=== PATIENT | male | born 1980 | race Caucasian/White ===

== ENCOUNTER 2016-09-24 21:41 | Inpatient (IN) | payer BC, OTHER ==
--- NOTE | 2016-09-24 22:46 | PDOC ---
History of Present Illness - General Chief Complaint: Rash Stated Complaint: RASH,KNEE PAIN Time Seen by Provider: 09/24/16 22:14 History Source: Patient - History of Present Illness Initial Comments: 09/24/16 23:13 35 year old male with right forearm rash started on 09/18/2016 seen in urgent care started on acyclovir for possible shingles. rash progressively worsened patient seen in urgent care yesterday given steroids and clindamycin. returned today for a wound check, rash spreading with worsening redness, and warmth. no streaking noted up the arm. patient reports yard work unsure of poison nestor exposure. Past History - Past Medical History Allergies/Adverse Reactions: Allergies Allergy/AdvReac Type Severity Reaction Status Date / Time No Known Allergies Allergy Verified 09/19/14 06:23 Home Medications: Ambulatory Orders Prazosin HCl [Minipress -] 2 mg PO PRN 09/25/16 Buspirone HCl [Buspar -] 5 mg PO TID tablet 09/29/16 Anemia: No Asthma: No Cancer: No Cardiac Disorders: No CVA: No COPD: No CHF: No Dementia: No Diabetes: No GI Disorders: No Disorders: No HTN: No Hypercholesterolemia: Yes Liver Disease: No Seizures: No Thyroid Disease: No - Surgical History Abdominal Surgery: No Appendectomy: No Cardiac Surgery: No Cholecystectomy: No Lung Surgery: No Neurologic Surgery: No Orthopedic Surgery: Yes (ACL LEFT KNEE) - Immunization History Immunization Up to Date: Yes - Psycho/Social/Smoking Cessation Hx Anxiety: No Suicidal Ideation: No Smoking Status: No Smoking History: Never smoked Have you smoked in the past 12 months: No Number of Cigarettes Smoked Daily: 0 Cigars Per Day: 0 Information on smoking cessation initiated: No Hx Alcohol Use: No Drug/Substance Use Hx: No Substance Use Type: Alcohol Hx Substance Use Treatment: No Review of Systems - Review of Systems Able to Perform ROS?: Yes Is the patient limited Turkish proficient: No Constitutional: No: Symptoms Reported, See HPI, Chills, Diaphoresis, Fever, Loss of Appetite, Malaise, Night Sweats, Weakness, Weight Stable, Unintentional Wgt. Loss, Unexplained wgt Loss, Other Cardiac (ROS): No: Symptoms Reported, See HPI, Chest Pain, Edema, Irregular Heart Rate, Lightheadedness, Palpitations, Syncope, Chest Tightness, Other ABD/GI: No: Symptoms Reported, See HPI, Abdominal Distended, Abd. Pain w/ defecation, Blood Streaked Bowels, Constipated, Diarrhea, Difficulty Swallowing , Nausea, Poor Appetite, Poor Fluid Intake, Rectal Bleeding, Vomiting, Indigestion, Abdominal cramping, Tarry Stools, Other Integumentary: Yes: Erythema (and rash to right forearm) *Physical Exam - Vital Signs Last Vital Signs Temp Pulse Resp BP Pulse Ox 98.4 F 87 17 143/91 96 09/24/16 21:47 09/24/16 21:47 09/24/16 21:47 09/24/16 21:47 09/24/16 21:47 - Physical Exam General Appearance: Yes: Appropriately Dressed Respiratory/Chest: positive: Lungs Clear, Normal Breath Sounds Extremity: positive: Normal Capillary Refill, Normal Inspection, Normal Range of Motion, Other (bullous weeping erythematous area extensive to forearm and upper arm. no lymphadenopathy noted.) Integumentary: positive: Normal Color, Dry, Warm Neurologic: positive: Fully Oriented, Alert, Normal Mood/Affect ED Treatment Course - LABORATORY CBC & Chemistry Diagram: 09/28/16 08:30 09/27/16 13:10 Progress Note - Progress Note Progress Note: A: rash with superimposed cellulitis P: CBC Blood culture antibiotics admit for cellulitis Medical Decision Making - Medical Decision Making 09/25/16 01:53 patient to be monitored for further management of care. patient admitted to Dr. santacruz *DC/Admit/Observation/Transfer Diagnosis at time of Disposition: Cellulitis Qualifiers: Site of cellulitis: extremity Site of cellulitis of extremity: upper extremity Laterality: right Qualified Code(s): L03.113 - Cellulitis of right upper limb - Discharge Dispostion Disposition: HOME Condition at time of disposition: Improved Admit: Yes
[2016-09-24 23:19] LABS: BASOPHIL 0.6 % (0-2.0); EOSINOPHIL 5.7 % (0-4.5); MCHC 33.9 g/dl (32.0-35.9); MEAN CELL VOLUME 94.5 fl (80-96); MEAN PLT VOLUME 9.7 fl (7.5-11.1); NEUTROPHILS 60.2 % (42.8-82.8); PLATELET COUNT 198 K/MM3 (134-434); WHITE BLOOD COUNT 9.1 K/mm3 (4.0-10.0)
[2016-09-24 23:31] LABS: INR 1.12 (0.82-1.09); PROTHROMBIN TIME (PATIENT) 12.3 SEC (9.98-11.88)
[2016-09-24 23:33] LABS: ACTIVATED PTT 33.9 SECONDS (26.9-34.4)
[2016-09-24 23:43] LABS: URINE APPEARANCE CLEAR; URINE BILIRUBIN NEGATIVE (NEGATIVE); URINE BLOOD NEGATIVE (NEGATIVE); URINE COLOR YELLOW; URINE GLUCOSE (UA) NEGATIVE (NEGATIVE); URINE KETONE NEGATIVE (NEGATIVE); URINE LEUK ESTERASE NEGATIVE (NEGATIVE); URINE NITRITE NEGATIVE (NEGATIVE); URINE PROTEIN NEGATIVE (NEGATIVE); URINE UROBILINOGEN NEGATIVE E.U./dl (0.2-1.0)
[2016-09-24 23:45] LABS: ALBUMIN 4.1 g/dl (3.4-5.0); CALCIUM 9.5 mg/dL (8.5-10.1); COCKROFT - GAULT 101.9; CREATININE 1.4 mg/dL (0.7-1.3)
[2016-09-24 23:47] LABS: BILIRUBIN,TOTAL 0.6 mg/dL (0.2-1.0); TOT PROT 7.6 g/dl (6.4-8.2)
--- NOTE | 2016-09-25 00:26 | PDOC ---
*Physical Exam - Vital Signs Last Vital Signs Temp Pulse Resp BP Pulse Ox 98.4 F 87 17 143/91 96 09/24/16 21:47 09/24/16 21:47 09/24/16 21:47 09/24/16 21:47 09/24/16 21:47 - Physical Exam Comments: 09/25/16 00:26 The patient was examined by [EKATERINA Wheatley] under my direct supervision. I personally evaluated the patient. I concur with the above findings and the plan of care. ED Treatment Course - LABORATORY CBC & Chemistry Diagram: 09/24/16 23:02 09/24/16 23:02 - ADDITIONAL ORDERS Additional order review: Laboratory Results 09/24/16 23:02 Sodium 142 Potassium 4.4 Chloride 103 Carbon Dioxide 29 Anion Gap 10 BUN 21 H D Creatinine 1.4 H D Creat Clearance w eGFR 57.03 Random Glucose 104 Calcium 9.5 Total Bilirubin 0.6 AST 19 D ALT 40 D Alkaline Phosphatase 57 Total Protein 7.6 Albumin 4.1 09/24/16 23:02 RBC 4.77 MCV 94.5 MCHC 33.9 RDW 13.0 MPV 9.7 Neutrophils % 60.2 Lymphocytes % 25.9 D Monocytes % 7.6 Eosinophils % 5.7 H D Basophils % 0.6 *DC/Admit/Observation/Transfer Diagnosis at time of Disposition: Cellulitis Qualifiers: Site of cellulitis: extremity Site of cellulitis of extremity: upper extremity Laterality: right Qualified Code(s): L03.113 - Cellulitis of right upper limb
[2016-09-25] MEDS ORDERED: VANCOMYCIN 1 GRAM (PRE-DOCKED) 1,000 MG/250 ML BAG IVPB ONE (00:46)
[2016-09-25] MEDS ORDERED: CEFAZOLIN 1 GM in DEXTROSE 5%-WATER - 50 ML IVPB ONE (00:46)
[2016-09-25] MEDS ORDERED: CEFAZOLIN (PRE-DOCKED) 50 ML IVPB ONE (00:50)
[2016-09-25] MEDS ORDERED: SODIUM CHLORIDE 0.9% 500 ML INFUS.BAG IV ONE (01:15)
[2016-09-25] MEDS ORDERED: VANCOMYCIN 1 GRAM (PRE-DOCKED) 250 ML IVPB ONE (01:40)
[2016-09-25 04:38] VITALS: BMI 34.9
[2016-09-25] MEDS ORDERED: ACETAMINOPHEN 325 MG TABLET (FP) PO PRN (09:10)
[2016-09-25] MEDS ORDERED: PRAZOSIN HCL 2 MG CAPSULE PO SCH (09:15)
--- NOTE | 2016-09-25 10:25 | HP ---
Admitting History and Physical - Primary Care Physician PCP: Carolina Torres - Admission Chief Complaint: Worsening Rash Rt Elbow arm History of Present Illness: 35 year old male H/O PTSD, depression and anxiety present with Rt forearm rash started on 09/18/2016 as a blister around elbow, , initially seen in an urgent care , considering Herpez Zoster patient was started on acyclovir, rash progressively worsened patient revisited urgent , put on steroids and clindamycin. Wound remained symptomatic so returned today for a wound check, rash spreading with worsening erythema and warmth. no streaking noted up the arm. Patient denies any insect bite, trauma, pin prick or sick contact no c/o fever, chills , nausea or vomiting. History Source: Patient Limitations to Obtaining History: No Limitations - Past Medical History Cardiovascular: No: AFIB, HTN, Hyperlipdemia Pulmonary: No: Asthma, Bronchitis Gastrointestinal: No: Ascites, Constipation Infectious Disease: Yes: AIDS - Smoking History Smoking history: Never smoked Have you smoked in the past 12 months: No Aproximately how many cigarettes per day: 0 - Alcohol/Substance Use Hx Alcohol Use: Yes (occasional) - Social History History of Recent Travel: No Home Medications - Allergies Allergies/Adverse Reactions: Allergies Allergy/AdvReac Type Severity Reaction Status Date / Time No Known Allergies Allergy Verified 09/19/14 06:23 - Home Medications Home Medications: Ambulatory Orders Buspirone HCl [Buspar -] 5 mg PO TID 09/25/16 Prazosin HCl [Minipress -] 2 mg PO PRN 09/25/16 Family Disease History - Family Disease History Family Disease History: Heart Disease: Father (HTN) Review of Systems - Review of Systems Constitutional: reports: No Symptoms, Malaise Eyes: reports: No Symptoms HENT: reports: No Symptoms Neck: reports: No Symptoms Cardiovascular: reports: No Symptoms Respiratory: reports: No Symptoms Gastrointestinal: reports: No Symptoms Genitourinary: reports: No Symptoms Breasts: reports: No Symptoms Reported Musculoskeletal: reports: No Symptoms Integumentary: reports: Blister Neurological: reports: No Symptoms Endocrine: reports: No Symptoms Hematology/Lymphatic: reports: No Symptoms Psychiatric: reports: No Symptoms. denies: Panic, Paranoia, Suicidal Physical Examination Vital Signs: Vital Signs Temperature 97.8 F 09/25/16 06:00 Pulse Rate 72 09/25/16 06:00 Respiratory Rate 12 09/25/16 06:00 Blood Pressure 127/77 09/25/16 06:00 O2 Sat by Pulse Oximetry (%) 97 09/25/16 00:30 Young man not in Distress HEENT: MM moist, no anemia, PERRLA EOMI NECK; No JVD No Bruit CHEST: CTA B/L CVS; S1S2 R no m/g/r ABD: No distention, non tender Bs + EXT: Rt UE around elbow medial aspect multiple bliters formation with erythem aof surrounding ski, also few small vesicular rash on left hand dorm and fore head No edema feet no calf tenderness [employer]: Aox3 non focal Derm:Rt UE around elbow medial aspect multiple bliters formation with erythem aof surrounding ski, also few smlal rash on left hand dorm and fore head Labs: Laboratory Results - last 24 hr 09/24/16 09/24/16 09/24/16 23:02 23:02 23:02 WBC 9.1 D RBC 4.77 Hgb 15.3 Hct 45.0 MCV 94.5 MCHC 33.9 RDW 13.0 Plt Count 198 MPV 9.7 Neutrophils % 60.2 Lymphocytes % 25.9 D Monocytes % 7.6 Eosinophils % 5.7 H D Basophils % 0.6 INR 1.12 PTT (Actin FS) 33.9 Sodium 142 Potassium 4.4 Chloride 103 Carbon Dioxide 29 Anion Gap 10 BUN 21 H D Creatinine 1.4 H D Creat Clearance w eGFR 57.03 Random Glucose 104 Calcium 9.5 Total Bilirubin 0.6 AST 19 D ALT 40 D Alkaline Phosphatase 57 Total Protein 7.6 Albumin 4.1 Urine Color Urine Appearance Urine pH Ur Specific [place] Urine Protein Urine Glucose (UA) Urine Ketones Urine Blood Urine Nitrite Urine Bilirubin Urine Urobilinogen Ur Leukocyte Esterase Blood Type Antibody Screen 09/24/16 09/24/16 09/25/16 23:02 23:30 08:40 WBC RBC Hgb Hct MCV MCHC RDW Plt Count MPV Neutrophils % Lymphocytes % Monocytes % Eosinophils % Basophils % INR PTT (Actin FS) Sodium Potassium Chloride Carbon Dioxide Anion Gap BUN Creatinine Creat Clearance w eGFR Random Glucose Calcium Total Bilirubin AST ALT Alkaline Phosphatase Total Protein Albumin Urine Color Yellow Urine Appearance Clear Urine pH 6.0 Ur Specific [place] 1.028 Urine Protein Negative Urine Glucose (UA) Negative Urine Ketones Negative Urine Blood Negative Urine Nitrite Negative Urine Bilirubin Negative Urine Urobilinogen Negative Ur Leukocyte Esterase Negative Blood Type A POSITIVE A POSITIVE Antibody Screen Negative Assessment/Plan Active Medications Generic Name Dose Route Start Last Admin Trade Name Freq PRN Reason Stop Dose Admin Acetaminophen 650 mg 09/25/16 09:10 Tylenol - PO Q6H PRN FEVER OR PAIN Buspirone HCl 5 mg 09/25/16 14:00 Buspar - PO TID BRIT Sodium Chloride 1,000 mls @ 100 mls/hr 09/25/16 09:15 Normal Saline - IV ASDIR BRIT Cefazolin Sodium 50 mls @ 100 mls/hr 09/25/16 10:00 Ancef 1gm Ivpb (Pre-Docked) IVPB Q8H-IV BRIT Prazosin HCl 2 mg 09/25/16 09:15 Minipress - PO PRN BRIT 1. 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 2. AMELIA: Due to dehydration F/U BMP after Hydration 3 Dehydration: IV hydration. 4: PTSD depression cont home meds 5. HTN: Cont Home meds
[2016-09-25] MEDS: CEFAZOLIN (PRE-DOCKED) 50 ML IVPB SCH ×2 (10:47→18:15)
[2016-09-25] MEDS: SODIUM CHLORIDE 1,000 ML IV SCH ×2 (10:48→23:32)
[2016-09-25] MEDS: diphenhydrAMINE HCL 25 MG CAPSULE (FP) PO PRN ×2 (14:03→20:49)
[2016-09-25] MEDS: busPIRone HCL 5 MG TABLET PO SCH ×2 (14:04→21:12)
--- NOTE | 2016-09-25 14:40 | CONSULT ---
Consult Consult Specialty:: infectious diseases Referred by:: Reason for Consultation:: blisters on forearm - History of Present Illness Chief Complaint: blisters History of Present Illness: 35 year old male H/O depression and anxiety present with Rt forearm rash started on 09/18/2016 , initially seen in an urgent care , considering Herpez Zoster patient was started on acyclovir, rash progressively worsened patient revisited urgent , put on steroids and clindamycin. patient now comes wiht worsening rah,blisters and pain some of the blisters are fluid filled also patient has - History Source History Provided By: Patient Limitations to Obtaining History: No Limitations - Past Medical History Cardio/Vascular: No: AFIB, HTN, Hyperlipdemia Pulmonary: No: Asthma, Bronchitis Gastrointestinal: No: Ascites, Constipation Infectious Disease: Yes: AIDS - Alcohol/Substance Use Hx Alcohol Use: Yes (occasional) - Smoking History Smoking history: Never smoked Have you smoked in the past 12 months: No Aproximately how many cigarettes per day: 0 - Social History History of Recent Travel: No Home Medications - Allergies Allergies/Adverse Reactions: Allergies Allergy/AdvReac Type Severity Reaction Status Date / Time No Known Allergies Allergy Verified 09/19/14 06:23 - Home Medications Home Medications: Ambulatory Orders Buspirone HCl [Buspar -] 5 mg PO TID 09/25/16 Prazosin HCl [Minipress -] 2 mg PO PRN 09/25/16 Review of Systems - Review of Systems Constitutional: reports: No Symptoms Eyes: reports: No Symptoms HENT: reports: No Symptoms Neck: reports: No Symptoms Cardiovascular: reports: No Symptoms Respiratory: reports: No Symptoms Gastrointestinal: reports: No Symptoms Musculoskeletal: reports: No Symptoms Integumentary: reports: Bruising, Erythema, Rash, Wound, Other Neurological: reports: No Symptoms Endocrine: reports: No Symptoms Hematology/Lymphatic: reports: No Symptoms Psychiatric: reports: No Symptoms Physical Exam Vital Signs: Vital Signs Temperature 97.7 F 09/25/16 13:55 Pulse Rate 77 09/25/16 13:55 Respiratory Rate 09/25/16 13:55 Blood Pressure 127/77 09/25/16 06:00 O2 Sat by Pulse Oximetry (%) 97 09/25/16 00:30 Constitutional: Yes: Calm, Mild Distress Eyes: Yes: Conjunctiva Clear HENT: Yes: Atraumatic Neck: Yes: Supple, Trachea Midline Cardiovascular: Yes: Regular Rate and Rhythm Respiratory: Yes: Regular, CTA Bilaterally Gastrointestinal: Yes: Normal Bowel Sounds, Soft Musculoskeletal: Yes: Other Extremities: Yes: Erythema, Other (rash,herpetic lesions type) Integumentary: Yes: Erythema, Rash, Other (blisters) Wound/Incision: Yes: Other Neurological: Yes: Alert, Oriented Psychiatric: Yes: Alert, Oriented Assessment/Plan after examining the patient i have no doubt that this is an infection,i also think the way rash is and he developing other vesicles he could very well have herpes r/o herpes. r/o mrsa infection wound infection rt arm cellulitis blisters chary plan will start him on unasyn and clinda also i am giving acylovir will ask for viral culture to see if he has herpes rest continue hydration continue to monitor
[2016-09-25] MEDS ORDERED: PT OWN MED DRAWER 7, Y5N ONE (16:48)
[2016-09-25] MEDS: CLINDAMYCIN 600MG PREMIX IVPB 50 ML IVPB SCH (16:57)
[2016-09-25] MEDS: ACYCLOVIR INJECTION 500 MG in DEXTROSE 5%-WATER - 100 ML IVPB SCH (16:57)
[2016-09-25] MEDS: AMPICILLIN NA/SULBACTAM NA 3 GM in SODIUM CHLORIDE 100 ML IVPB SCH (16:57)
[2016-09-26] MEDS: CLINDAMYCIN 600MG PREMIX IVPB 50 ML IVPB SCH ×4 (01:26→21:01)
[2016-09-26] MEDS: AMPICILLIN NA/SULBACTAM NA 3 GM in SODIUM CHLORIDE 100 ML IVPB SCH ×3 (02:13→17:53)
[2016-09-26] MEDS: ACYCLOVIR INJECTION 500 MG in DEXTROSE 5%-WATER - 100 ML IVPB SCH ×2 (02:50→09:26)
[2016-09-26] MEDS: busPIRone HCL 5 MG TABLET PO SCH ×3 (05:50→21:41)
[2016-09-26 08:28] LABS: BASOPHIL 0.8 % (0-2.0); EOSINOPHIL 6.3 % (0-4.5); MCH 32.3 pg (25.7-33.7); MCHC 34.2 g/dl (32.0-35.9); MEAN CELL VOLUME 94.4 fl (80-96); NEUTROPHILS 51.7 % (42.8-82.8); PLATELET COUNT 168 K/MM3 (134-434); RDW 13.3 % (11.9-15.9); WHITE BLOOD COUNT 5.3 K/mm3 (4.0-10.0)
[2016-09-26] MEDS: diphenhydrAMINE HCL 25 MG CAPSULE (FP) PO PRN ×3 (08:52→21:45)
[2016-09-26] MEDS: amLODIPine BESYLATE 5 MG TABLET (FP) PO SCH ×2 (08:53→11:15)
[2016-09-26 09:07] LABS: ALBUMIN 3.3 g/dl (3.4-5.0); ALK PHOS 51 U/L (45-117); ANION GAP 9 (8-16); BILIRUBIN,TOTAL 0.7 mg/dL (0.2-1.0); CALCIUM 8.7 mg/dL (8.5-10.1); CO2 26 mmol/L (21-32); COCKROFT - GAULT 135.67; CREATININE 1.1 mg/dL (0.7-1.3); GLUCOSE,RANDOM 82 mg/dL (74-106); SGOT/AST 17 U/L (15-37); SGPT/ALT 32 U/L (12-78); TOT PROT 6.6 g/dl (6.4-8.2)
[2016-09-26] MEDS ORDERED: PT OWN MED DRAWER 7, Y5N ONE ×4 (11:38→21:04)
[2016-09-26] MEDS ORDERED: diphenhydrAMINE HCL 25 MG CAPSULE (FP) PO PRN (13:17)
[2016-09-26] MEDS: SODIUM CHLORIDE 1,000 ML IV SCH (14:41)
--- NOTE | 2016-09-26 14:48 | PN ---
Progress Note, Physician History of Present Illness: hands still with blister now the other hand also developing on the hand itchy - Current Medication List Current Medications: Active Medications Acetaminophen (Tylenol -) 650 mg PO Q6H PRN PRN Reason: FEVER OR PAIN Amlodipine Besylate (Norvasc -) 5 mg PO DAILY [facility] Last Admin: 09/26/16 11:15 Dose: 5 mg Buspirone HCl (Buspar -) 5 mg PO TID [facility] Last Admin: 09/26/16 14:40 Dose: 5 mg Diphenhydramine HCl (Benadryl -) 50 mg PO Q6H PRN PRN Reason: ITCHINESS Last Admin: 09/26/16 14:40 Dose: 50 mg Sodium Chloride (Normal Saline -) 1,000 mls @ 100 mls/hr IV ASDIR [facility] Last Admin: 09/26/16 14:41 Dose: 100 mls/hr Clindamycin Phosphate (Cleocin 600 Mg Premix Ivpb -) 50 mls @ 100 mls/hr IVPB Q8H-IV [facility] Last Admin: 09/26/16 11:07 Dose: 100 mls/hr Acyclovir 500 mg/ Dextrose 110 mls @ 100 mls/hr IVPB Q8H-IV [facility] Last Admin: 09/26/16 09:26 Dose: 100 mls/hr Ampicillin Sodium/Sulbactam (Sodium 3 gm/ Sodium Chloride) 100 mls @ 200 mls/ hr IVPB Q8H-IV BRIT Last Admin: 09/26/16 11:55 Dose: 200 mls/hr - Objective Vital Signs: Vital Signs Temperature 97.6 F 09/26/16 13:40 Pulse Rate 92 H 09/26/16 13:40 Respiratory Rate 20 09/26/16 09:00 Blood Pressure 121/84 09/26/16 13:40 O2 Sat by Pulse Oximetry (%) 95 09/25/16 09:00 Constitutional: Yes: Calm, Mild Distress Eyes: Yes: Conjunctiva Clear Cardiovascular: Yes: Regular Rate and Rhythm Respiratory: Yes: Regular, CTA Bilaterally Gastrointestinal: Yes: Normal Bowel Sounds, Soft Musculoskeletal: Yes: WNL Extremities: Yes: WNL Neurological: Yes: Alert, Oriented Psychiatric: Yes: Alert, Oriented Labs: CBC, BMP 09/26/16 08:15 09/26/16 08:15 INR, PTT INR 1.12 (0.82-1.09) 09/24/16 23:02 Assessment/Plan after examining the patient i have no doubt that this is an infection,i also think the way rash is and he developing other vesicles he could very well have herpes r/o herpes. r/o mrsa infection wound infection rt arm cellulitis blisters chary posradha baez i think after seeing todays pictures it is less likely to be herpes plan will start him on unasyn and clinda will stop acylovir await for cx rest continue hydration continue to monitor
--- NOTE | 2016-09-26 18:16 | PN ---
Progress Note, Physician Chief Complaint: Less itching and erythema no new blisters remained afebtrile History of Present Illness: 35 yrs old man H/o HTN, PTSD admitted with Rt UE blisters with rash - Current Medication List Current Medications: Active Medications Acetaminophen (Tylenol -) 650 mg PO Q6H PRN PRN Reason: FEVER OR PAIN Amlodipine Besylate (Norvasc -) 5 mg PO DAILY [facility] Last Admin: 09/26/16 11:15 Dose: 5 mg Buspirone HCl (Buspar -) 5 mg PO TID [facility] Last Admin: 09/26/16 14:40 Dose: 5 mg Diphenhydramine HCl (Benadryl -) 50 mg PO Q6H PRN PRN Reason: ITCHINESS Last Admin: 09/26/16 14:40 Dose: 50 mg Hydrocortisone (Hytone 1% Lotion -) 1 applic TP BID PRN PRN Reason: DRY SKIN Sodium Chloride (Normal Saline -) 1,000 mls @ 100 mls/hr IV ASDIR [facility] Last Admin: 09/26/16 14:41 Dose: 100 mls/hr Clindamycin Phosphate (Cleocin 600 Mg Premix Ivpb -) 50 mls @ 100 mls/hr IVPB Q8H-IV [facility] Last Admin: 09/26/16 16:52 Dose: 100 mls/hr Ampicillin Sodium/Sulbactam (Sodium 3 gm/ Sodium Chloride) 100 mls @ 200 mls/ hr IVPB Q8H-IV [facility] Last Admin: 09/26/16 17:53 Dose: 200 mls/hr - Objective Vital Signs: Vital Signs Temperature 97.6 F 09/26/16 13:40 Pulse Rate 92 H 09/26/16 13:40 Respiratory Rate 20 09/26/16 09:00 Blood Pressure 121/84 09/26/16 13:40 O2 Sat by Pulse Oximetry (%) 95 09/25/16 09:00 Constitutional: Yes: Well Nourished Eyes: Yes: WNL, Conjunctiva Clear HENT: Yes: WNL, Atraumatic, Normocephalic Neck: Yes: WNL, Supple, Trachea Midline Cardiovascular: Yes: WNL Respiratory: Yes: WNL, Regular, CTA Bilaterally Gastrointestinal: Yes: WNL, Normal Bowel Sounds, Soft ...Rectal Exam: Yes: Deferred Genitourinary: Yes: WNL Musculoskeletal: Yes: WNL. No: Back Pain, Joint Stiffness Extremities: Yes: Other (Rt UE around elbow medial aspect multiple bliters formation with erythem aof surrounding ski, also few smlal rash on left hand dorm and fore head) Edema: No Peripheral Pulses WNL: Yes Peripheral Pulses: Left Radial: 2+, Right Radial: 2+, Left Doralis Pedis: 2+, Right Dorsalis Pedis: 2+, Left Femoral: 2+, Right Femoral: 2+ Integumentary: Yes: Other (Rt UE around elbow medial aspect multiple bliters formation with erythem aof surrounding ski, also few smlal rash on left hand dorm and fore head) Labs: CBC, BMP 09/26/16 08:15 09/26/16 08:15 INR, PTT INR 1.12 (0.82-1.09) 09/24/16 23:02 Assessment/Plan Active Medications Generic Name Dose Route Start Last Admin Trade Name Freq PRN Reason Stop Dose Admin Acetaminophen 650 mg 09/25/16 09:10 Tylenol - PO Q6H PRN FEVER OR PAIN Buspirone HCl 5 mg 09/25/16 14:00 Buspar - PO TID BRIT Sodium Chloride 1,000 mls @ 100 mls/hr 09/25/16 09:15 Normal Saline - IV ASDIR BRIT Cefazolin Sodium 50 mls @ 100 mls/hr 09/25/16 10:00 Ancef 1gm Ivpb (Pre-Docked) IVPB Q8H-IV BRIT Prazosin HCl 2 mg 09/25/16 09:15 Minipress - PO PRN BRIT 1. 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 2. AMELIA: Due to dehydration F/U BMP after Hydration 3 Dehydration: IV hydration. 4: PTSD depression cont home meds
[2016-09-27] MEDS: CLINDAMYCIN 600MG PREMIX IVPB 50 ML IVPB SCH ×3 (01:55→17:20)
[2016-09-27] MEDS: AMPICILLIN NA/SULBACTAM NA 3 GM in SODIUM CHLORIDE 100 ML IVPB SCH ×3 (01:55→18:38)
[2016-09-27] MEDS: SODIUM CHLORIDE 1,000 ML IV SCH ×3 (01:56→17:19)
[2016-09-27] MEDS: busPIRone HCL 5 MG TABLET PO SCH ×3 (06:18→22:02)
[2016-09-27] MEDS ORDERED: PT OWN MED DRAWER 7, Y5N ONE ×3 (09:38→21:19)
[2016-09-27] MEDS: amLODIPine BESYLATE 5 MG TABLET (FP) PO SCH (09:46)
[2016-09-27] MEDS: diphenhydrAMINE HCL 25 MG CAPSULE (FP) PO PRN ×2 (11:44→22:33)
--- NOTE | 2016-09-27 12:43 | PN ---
[id number] Present Illness: 35 yrs old man H/o HTN, PTSD admitted with Rt UE blisters with rash - Current Medication List Current Medications: Active Medications Acetaminophen (Tylenol -) 650 mg PO Q6H PRN PRN Reason: FEVER OR PAIN Amlodipine Besylate (Norvasc -) 5 mg PO DAILY [facility] Last Admin: 09/27/16 09:46 Dose: 5 mg Buspirone HCl (Buspar -) 5 mg PO TID [facility] Last Admin: 09/27/16 06:18 Dose: 5 mg Diphenhydramine HCl (Benadryl -) 50 mg PO Q6H PRN PRN Reason: ITCHINESS Last Admin: 09/27/16 11:44 Dose: 50 mg Hydrocortisone (Hytone 1% Lotion -) 1 applic TP BID PRN PRN Reason: DRY SKIN Sodium Chloride (Normal Saline -) 1,000 mls @ 100 mls/hr IV ASDIR [facility] Last Admin: 09/27/16 09:32 Dose: Not Given Clindamycin Phosphate (Cleocin 600 Mg Premix Ivpb -) 50 mls @ 100 mls/hr IVPB Q8H-IV [facility] Last Admin: 09/27/16 09:46 Dose: 100 mls/hr Ampicillin Sodium/Sulbactam (Sodium 3 gm/ Sodium Chloride) 100 mls @ 200 mls/ hr IVPB Q8H-IV [facility] Last Admin: 09/27/16 11:39 Dose: 200 mls/hr - Objective Vital Signs: Vital Signs Temperature 97.8 F 09/27/16 05:44 Pulse Rate 74 09/27/16 05:44 Respiratory Rate 20 09/27/16 05:44 Blood Pressure 136/88 09/27/16 05:44 O2 Sat by Pulse Oximetry (%) 100 09/26/16 21:00 Constitutional: Yes: Well Nourished, No Distress Eyes: Yes: WNL, Conjunctiva Clear HENT: Yes: WNL, Normocephalic Neck: Yes: WNL, Supple, Trachea Midline Cardiovascular: Yes: WNL, Regular Rate and Rhythm Respiratory: Yes: WNL, Regular, CTA Bilaterally Gastrointestinal: Yes: WNL, Normal Bowel Sounds, Soft ...Rectal Exam: Yes: Deferred Genitourinary: Yes: Bladder Distention Breast(s): Yes: WNL Musculoskeletal: Yes: WNL Extremities: Yes: Other (Rt UE around elobow erythema nd Vesicular rash) Edema: No Peripheral Pulses WNL: Yes Neurological: Yes: WNL, Alert, Oriented ...Motor Strength: WNL, LUE, RUE Psychiatric: Yes: WNL, Alert, Oriented Labs: CBC, BMP 09/26/16 08:15 09/26/16 08:15 INR, PTT INR 1.12 (0.82-1.09) 09/24/16 23:02 Assessment/Plan Active Medications Generic Name Dose Route Start Last Admin Trade Name Freq PRN Reason Stop Dose Admin Acetaminophen 650 mg 09/25/16 09:10 Tylenol - PO Q6H PRN FEVER OR PAIN Buspirone HCl 5 mg 09/25/16 14:00 Buspar - PO TID BRIT Sodium Chloride 1,000 mls @ 100 mls/hr 09/25/16 09:15 Normal Saline - IV ASDIR BRIT Cefazolin Sodium 50 mls @ 100 mls/hr 09/25/16 10:00 Ancef 1gm Ivpb (Pre-Docked) IVPB Q8H-IV BRIT Prazosin HCl 2 mg 09/25/16 09:15 Minipress - PO PRN BRIT 1. 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 2. AMELIA: Due to dehydration F/U BMP after Hydration 3 Dehydration: IV hydration. 4: PTSD depression cont home meds
[2016-09-27 14:14] LABS: ALBUMIN 3.7 g/dl (3.4-5.0); ANION GAP 11 (8-16); CALCIUM 8.8 mg/dL (8.5-10.1); CO2 26 mmol/L (21-32); COCKROFT - GAULT 135.67; CREATININE 1.1 mg/dL (0.7-1.3); GLUCOSE,RANDOM 122 mg/dL (74-106); SGOT/AST 28 U/L (15-37); SGPT/ALT 46 U/L (12-78)
[2016-09-27 14:17] LABS: ALK PHOS 57 U/L (45-117); BILIRUBIN,TOTAL 0.5 mg/dL (0.2-1.0); TOT PROT 7.1 g/dl (6.4-8.2)
[2016-09-27] MEDS: HYDROCORTISONE 1% TOPICAL LOTION 118 ML BOTTLE TP PRN ×2 (16:34→22:30)
--- NOTE | 2016-09-27 17:02 | PN ---
Progress Note, Physician History of Present Illness: hands still with blister improving erythema less itching less - Current Medication List Current Medications: Active Medications Acetaminophen (Tylenol -) 650 mg PO Q6H PRN PRN Reason: FEVER OR PAIN Amlodipine Besylate (Norvasc -) 5 mg PO DAILY [facility] Last Admin: 09/27/16 09:46 Dose: 5 mg Buspirone HCl (Buspar -) 5 mg PO TID [facility] Last Admin: 09/27/16 14:26 Dose: 5 mg Diphenhydramine HCl (Benadryl -) 50 mg PO Q6H PRN PRN Reason: ITCHINESS Last Admin: 09/27/16 11:44 Dose: 50 mg Hydrocortisone (Hytone 1% Lotion -) 1 applic TP BID PRN PRN Reason: DRY SKIN Last Admin: 09/27/16 16:34 Dose: 1 applic Sodium Chloride (Normal Saline -) 1,000 mls @ 100 mls/hr IV ASDIR [facility] Last Admin: 09/27/16 09:32 Dose: Not Given Clindamycin Phosphate (Cleocin 600 Mg Premix Ivpb -) 50 mls @ 100 mls/hr IVPB Q8H-IV [facility] Last Admin: 09/27/16 09:46 Dose: 100 mls/hr Ampicillin Sodium/Sulbactam (Sodium 3 gm/ Sodium Chloride) 100 mls @ 200 mls/ hr IVPB Q8H-IV [facility] Last Admin: 09/27/16 11:39 Dose: 200 mls/hr - Objective Vital Signs: Vital Signs Temperature 97.7 F 09/27/16 15:18 Pulse Rate 92 H 09/27/16 15:18 Respiratory Rate 20 09/27/16 08:00 Blood Pressure 147/89 09/27/16 15:18 O2 Sat by Pulse Oximetry (%) 100 09/27/16 08:00 Constitutional: Yes: No Distress, Calm Cardiovascular: Yes: Regular Rate and Rhythm Respiratory: Yes: Regular, CTA Bilaterally Gastrointestinal: Yes: Normal Bowel Sounds, Soft Musculoskeletal: Yes: WNL Extremities: Yes: Other Integumentary: Yes: Rash (with blisters erythema less) Wound/Incision: Yes: Open to air, Other Neurological: Yes: Alert, Oriented Psychiatric: Yes: Alert, Oriented Labs: CBC, BMP 09/26/16 08:15 09/27/16 13:10 INR, PTT INR 1.12 (0.82-1.09) 09/24/16 23:02 Assessment/Plan after examining the patient i have no doubt that this is an infection,i also think the way rash is and he developing other vesicles he could very well have herpes r/o herpes. r/o mrsa infection wound infection rt arm cellulitis blisters chary posion nestor i think after seeing todays pictures it is less likely to be herpes plan conitnue unasyn and clinda await for cx rest continue hydration continue to monitor hydrocortisone cream for local application
[2016-09-28] MEDS: CLINDAMYCIN 600MG PREMIX IVPB 50 ML IVPB SCH ×3 (02:01→17:51)
[2016-09-28] MEDS: AMPICILLIN NA/SULBACTAM NA 3 GM in SODIUM CHLORIDE 100 ML IVPB SCH ×3 (02:01→18:31)
[2016-09-28] MEDS: busPIRone HCL 5 MG TABLET PO SCH ×3 (05:56→21:38)
[2016-09-28] MEDS: SODIUM CHLORIDE 1,000 ML IV SCH ×2 (05:56→18:31)
--- NOTE | 2016-09-28 09:28 | PN ---
Progress Note, Physician Chief Complaint: Infection Rt arm History of Present Illness: Admitted with Rt arm blisters and pain On IV antibiotics,cultures so far Neg - Current Medication List Current Medications: Active Medications Acetaminophen (Tylenol -) 650 mg PO Q6H PRN PRN Reason: FEVER OR PAIN Amlodipine Besylate (Norvasc -) 5 mg PO DAILY [facility] Last Admin: 09/27/16 09:46 Dose: 5 mg Buspirone HCl (Buspar -) 5 mg PO TID [facility] Last Admin: 09/28/16 05:56 Dose: 5 mg Diphenhydramine HCl (Benadryl -) 50 mg PO Q6H PRN PRN Reason: ITCHINESS Last Admin: 09/27/16 22:33 Dose: 50 mg Hydrocortisone (Hytone 1% Lotion -) 1 applic TP BID PRN PRN Reason: DRY SKIN Last Admin: 09/27/16 22:30 Dose: 1 applic Sodium Chloride (Normal Saline -) 1,000 mls @ 100 mls/hr IV ASDIR [facility] Last Admin: 09/28/16 05:56 Dose: 100 mls/hr Clindamycin Phosphate (Cleocin 600 Mg Premix Ivpb -) 50 mls @ 100 mls/hr IVPB Q8H-IV [facility] Last Admin: 09/28/16 02:01 Dose: 100 mls/hr Ampicillin Sodium/Sulbactam (Sodium 3 gm/ Sodium Chloride) 100 mls @ 200 mls/ hr IVPB Q8H-IV [facility] Last Admin: 09/28/16 02:01 Dose: 200 mls/hr - Objective Vital Signs: Vital Signs Temperature 97.8 F 09/28/16 05:19 Pulse Rate 76 09/28/16 05:19 Respiratory Rate 20 09/28/16 05:19 Blood Pressure 132/78 09/28/16 05:19 O2 Sat by Pulse Oximetry (%) 100 09/27/16 21:00 Constitutional: Yes: No Distress Eyes: Yes: WNL HENT: Yes: WNL Neck: Yes: WNL Cardiovascular: Yes: WNL Respiratory: Yes: WNL Gastrointestinal: Yes: WNL ...Rectal Exam: Yes: Deferred Extremities: Yes: Other (Rt arm old blisters are cresting There are new blisters developing) Labs: CBC, BMP 09/27/16 13:10 INR, PTT INR 1.12 (0.82-1.09) 09/24/16 23:02 Assessment/Plan Another culture done from the culture Continue antibiotics
[2016-09-28] MEDS ORDERED: PT OWN MED DRAWER 7, Y5N ONE ×2 (09:38→18:30)
[2016-09-28] MEDS: amLODIPine BESYLATE 5 MG TABLET (FP) PO SCH (09:40)
[2016-09-28] MEDS: HYDROCORTISONE 1% TOPICAL LOTION 118 ML BOTTLE TP PRN (11:36)
[2016-09-28 13:56] LABS: EOSINOPHIL 6.6 % (0-4.5); MCH 32.3 pg (25.7-33.7); MCHC 33.6 g/dl (32.0-35.9); MEAN CELL VOLUME 96.3 fl (80-96); MEAN PLT VOLUME 9.6 fl (7.5-11.1); NEUTROPHILS 48.8 % (42.8-82.8); PLATELET COUNT 170 K/MM3 (134-434); RDW 13.1 % (11.9-15.9); WHITE BLOOD COUNT 4.7 K/mm3 (4.0-10.0)
--- NOTE | 2016-09-28 17:59 | PN ---
Progress Note, Physician History of Present Illness: improving blisters drying still some red rahs persists - Current Medication List Current Medications: Active Medications Acetaminophen (Tylenol -) 650 mg PO Q6H PRN PRN Reason: FEVER OR PAIN Amlodipine Besylate (Norvasc -) 5 mg PO DAILY [facility] Last Admin: 09/28/16 09:40 Dose: 5 mg Buspirone HCl (Buspar -) 5 mg PO TID [facility] Last Admin: 09/28/16 14:28 Dose: 5 mg Diphenhydramine HCl (Benadryl -) 50 mg PO Q6H PRN PRN Reason: ITCHINESS Last Admin: 09/27/16 22:33 Dose: 50 mg Hydrocortisone (Hytone 1% Lotion -) 1 applic TP BID PRN PRN Reason: DRY SKIN Last Admin: 09/28/16 11:36 Dose: 1 applic Sodium Chloride (Normal Saline -) 1,000 mls @ 100 mls/hr IV ASDIR [facility] Last Admin: 09/28/16 05:56 Dose: 100 mls/hr Clindamycin Phosphate (Cleocin 600 Mg Premix Ivpb -) 50 mls @ 100 mls/hr IVPB Q8H-IV [facility] Last Admin: 09/28/16 17:51 Dose: 100 mls/hr Ampicillin Sodium/Sulbactam (Sodium 3 gm/ Sodium Chloride) 100 mls @ 200 mls/ hr IVPB Q8H-IV [facility] Last Admin: 09/28/16 11:33 Dose: 200 mls/hr - Objective Vital Signs: Vital Signs Temperature 97.5 F L 09/28/16 13:39 Pulse Rate 77 09/28/16 13:39 Respiratory Rate 18 09/28/16 13:39 Blood Pressure 138/98 09/28/16 09:51 O2 Sat by Pulse Oximetry (%) 100 09/28/16 09:00 Constitutional: Yes: No Distress, Calm Cardiovascular: Yes: Regular Rate and Rhythm Respiratory: Yes: Regular, CTA Bilaterally Gastrointestinal: Yes: Normal Bowel Sounds, Soft Extremities: Yes: Other Integumentary: Yes: Rash, Other (rash spreading to other arm) Neurological: Yes: Alert, Oriented Psychiatric: Yes: Alert Labs: CBC, BMP 09/28/16 08:30 09/27/16 13:10 INR, PTT INR 1.12 (0.82-1.09) 04/27/17 23:02 Assessment/Plan after examining the patient i have no doubt that this is an infection,i also think the way rash is and he developing other vesicles he could very well have herpes r/o herpes. r/o mrsa infection wound infection rt arm cellulitis blisters chary posion [place]or dermatitis contact plan will change to oral abx continue current mgmt more like a picture of contact dermatitits
[2016-09-28] MEDS: diphenhydrAMINE HCL 25 MG CAPSULE (FP) PO PRN (21:39)
[2016-09-29] MEDS: CLINDAMYCIN 600MG PREMIX IVPB 50 ML IVPB SCH ×2 (01:09→09:16)
[2016-09-29] MEDS: AMPICILLIN NA/SULBACTAM NA 3 GM in SODIUM CHLORIDE 100 ML IVPB SCH ×2 (02:24→10:18)
[2016-09-29] MEDS: SODIUM CHLORIDE 1,000 ML IV SCH ×2 (05:39→09:12)
[2016-09-29] MEDS: busPIRone HCL 5 MG TABLET PO SCH (05:40)
--- NOTE | 2016-09-29 08:36 | DS ---
Physical Examination Vital Signs: Vital Signs Temperature 98.3 F 09/29/16 06:00 Pulse Rate 81 09/29/16 06:00 Respiratory Rate 16 09/29/16 06:00 Blood Pressure 128/84 09/29/16 06:00 O2 Sat by Pulse Oximetry (%) 100 09/28/16 20:39 Findings/Remarks: Admitted with rash with blisters on Rt elbow Itiology clear not clear , treated with IV antibiotics Overall shows improvement but new rashes and blisters noted All cultures Neg Constitutional: Yes: No Distress Eyes: Yes: WNL HENT: Yes: WNL Neck: Yes: WNL Cardiovascular: Yes: WNL Respiratory: Yes: WNL Gastrointestinal: Yes: WNL ...Rectal Exam: Yes: Deferred Renal/: Yes: WNL Musculoskeletal: Yes: WNL Extremities: Yes: WNL Edema: No Peripheral Pulses WNL: Yes Integumentary: Yes: WNL Wound/Incision: Yes: Clean/Dry Neurological: Yes: WNL ...Motor Strength: WNL Labs: CBC, BMP 09/28/16 08:30 09/27/16 13:10 Discharge Summary Reason For Visit: CELLULITIS Current Active Problems Cellulitis (Acute) - Home Medications Comprehensive Discharge Medication List: Ambulatory Orders Buspirone HCl [Buspar -] 5 mg PO TID 09/25/16 Prazosin HCl [Minipress -] 2 mg PO PRN 09/25/16
[2016-09-29] MEDS ORDERED: PT OWN MED DRAWER 7, Y5N ONE (09:10)
[2016-09-29] MEDS: amLODIPine BESYLATE 5 MG TABLET (FP) PO SCH (09:16)
--- NOTE | 2016-09-29 09:17 | PN ---
Progress Note, Physician History of Present Illness: well but the rash has spread to his back mild itchiing no fevers patient completely stable also blisters are drying - Current Medication List Current Medications: Active Medications Acetaminophen (Tylenol -) 650 mg PO Q6H PRN PRN Reason: FEVER OR PAIN Amlodipine Besylate (Norvasc -) 5 mg PO DAILY [facility] Last Admin: 09/29/16 09:16 Dose: 5 mg Buspirone HCl (Buspar -) 5 mg PO TID [facility] Last Admin: 09/29/16 05:40 Dose: 5 mg Diphenhydramine HCl (Benadryl -) 50 mg PO Q6H PRN PRN Reason: ITCHINESS Last Admin: 09/28/16 21:39 Dose: 50 mg Hydrocortisone (Hytone 1% Lotion -) 1 applic TP BID PRN PRN Reason: DRY SKIN Last Admin: 09/28/16 11:36 Dose: 1 applic Sodium Chloride (Normal Saline -) 1,000 mls @ 100 mls/hr IV ASDIR [facility] Last Admin: 09/29/16 09:12 Dose: Not Given Clindamycin Phosphate (Cleocin 600 Mg Premix Ivpb -) 50 mls @ 100 mls/hr IVPB Q8H-IV [facility] Last Admin: 09/29/16 09:16 Dose: 100 mls/hr Ampicillin Sodium/Sulbactam (Sodium 3 gm/ Sodium Chloride) 100 mls @ 200 mls/ hr IVPB Q8H-IV [facility] Last Admin: 09/29/16 02:24 Dose: 200 mls/hr - Objective Vital Signs: Vital Signs Temperature 98.3 F 09/29/16 06:00 Pulse Rate 81 09/29/16 06:00 Respiratory Rate 16 09/29/16 06:00 Blood Pressure 128/84 09/29/16 06:00 O2 Sat by Pulse Oximetry (%) 100 09/28/16 20:39 Constitutional: Yes: No Distress, Calm Cardiovascular: Yes: Regular Rate and Rhythm Respiratory: Yes: Regular, CTA Bilaterally Gastrointestinal: Yes: Normal Bowel Sounds, Soft Musculoskeletal: Yes: Other Extremities: Yes: Other Integumentary: Yes: Rash (present on the chest arms and the back small red pustules the blisters are drying) Labs: CBC, BMP 09/28/16 08:30 09/27/16 13:10 INR, PTT INR 1.12 (0.82-1.09) 09/24/16 23:02 Assessment/Plan after examining the patient i have no doubt that this is an infection,i also think the way rash is and he developing other vesicles he could very well have herpes r/o herpes. r/o mrsa infection wound infection rt arm cellulitis blisters chary posion [place] dermatitis contact plan doxy for a week also if possible to see a cooperer continue current mgmt contact dermatitis
[2016-09-29 11:18] VITALS: BP 140/73; PULSE 94; TEMP 98.1
== END 2016-09-29 14:51 | disposition home or self-care (01) | DRG 603 ==
LOC: JER 21:41 → JERBED 09-25 01:51 → J6S 09-25 03:42
PROVIDERS: ADMIT Internal Medicine; ATTEND Internal Medicine
DX: L03.113 Cellulitis of right upper limb (principal); N17.9 Acute kidney failure, unspecified; E78.00 Pure hypercholesterolemia, unspecified; E86.0 Dehydration; I10 Essential (primary) hypertension; F43.10 Post-traumatic stress disorder, unspecified
CPT/HCPCS: 36415; 80053; 81003; 85025; 85610; 85730; 86850; 86900; 86901; 87040; 87070; 87075; 87086; 87205; 87255; 99283-25